=== PATIENT | male | born 2000 | race Caucasian/White ===

== ENCOUNTER 2021-09-18 00:27 | Emergency (ER) | payer OTHER ==
[~2021-09-18 00:27] MED LIST: ZOFRAN ODT 4 MG4 MG SL
[2021-09-18 01:00] LABS: HEMOGLOBIN 14.5 gm/dl (14.0-17.5); RED BLOOD COUNT 5.2 M/UL (4.20-5.50); WHITE BLOOD COUNT 9.7 K/UL (4.5-11.0)
[2021-09-18 01:04] LABS: BUN/CREATININE RATIO 13 (0-10)
[2021-09-18] MEDS ORDERED: ZOFRAN 4 MG TAB4 MG PO (05:01)
[2021-09-18] MEDS ORDERED: TORADOL 10 MG T10 MG PO (05:01)
== END 2021-09-18 05:05 | disposition home or self-care (01) ==
LOC: ER1 00:27
PROVIDERS: Family Medicine
DX: N13.2 Hydronephrosis with renal and ureteral calculous obstruction (principal); Z88.0 Allergy status to penicillin; Z23 Encounter for immunization
CPT/HCPCS: 80053; 81001; 83690; 85025; 90471; 99284; J1885

== ENCOUNTER → 2022-02-22 | Outpatient (CLI) | payer OTHER ==
[~2022-02-22] MED LIST changes: +TORADOL 10 MG T10 MG PO; +ZOFRAN 4 MG TAB4 MG PO
== END ==
LOC: KOH-I 15:42
DX: N20.1 Calculus of ureter (principal)
CPT/HCPCS: 74018